=== PATIENT | female | born 1970 | race Caucasian/White ===

== ENCOUNTER 2017-08-18 19:44 | Emergency (ER) | payer BC ==
[~2017-08-18] VITALS: Ht 157.5 cm; Wt 65.0 kg
[~2017-08-18 19:44] MED LIST: ALPRAZOLAM; LISINOPRIL; PERCOCET 5/31 TABLET PO; PROMETHAZINE HC25 M1 PO; TOPAMAX; VALIUM5 MG PO; ZOFRAN4 MG PO; ZOLOFT
[2017-08-18 20:24] VITALS: BP 162/111
== END 2017-08-18 20:26 ==
LOC: EME 19:44
DX: I10 Essential (primary) hypertension (principal); F41.9 Anxiety disorder, unspecified; Z04.6 Encounter for general psychiatric examination, requested by authority; F17.200 Nicotine dependence, unspecified, uncomplicated; Z88.5 Allergy status to narcotic agent